=== PATIENT | female | born 1965 | race Caucasian/White ===

== ENCOUNTER 2017-04-10 07:49 | Day surgery (SDC) | END 2017-04-10 12:30 | disposition home or self-care (01) ==

== ENCOUNTER 2018-01-28 16:06 | Emergency (ER) | END 2018-01-28 23:15 | disposition home or self-care (01) ==

== ENCOUNTER 2018-02-27 10:33 | Emergency (ER) | payer SELFPAY ==
[~2018-02-27] VITALS: Ht 167.6 cm; Wt 68.2 kg
[2018-02-27 10:34] VITALS: BP 152/96; PULSE 66; RESP 17; Ht 167.6 cm; Wt 68.2 kg
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
[2018-02-27] MEDS ORDERED: HYDR-4011 PO (12:52)
[2018-02-27] MEDS ORDERED: ACET325T33 PO (12:52)
[2018-02-27] MEDS ORDERED: IBUP-1561 PO (12:52)
== END 2018-02-27 13:28 | disposition home or self-care (01) ==
LOC: FTE 10:33
DX: S69.92XA Unspecified injury of left wrist, hand and finger(s), initial encounter (principal); V28.9XXA Unspecified motorcycle rider injured in noncollision transport accident in traffic accident, initial encounter